=== PATIENT | male | born 1965 | race Caucasian/White ===

== ENCOUNTER 2021-09-25 16:00 | Outpatient (REF) | payer SELFPAY ==
[2021-09-25 16:02] LABS: ALT 39 U/L (16-63); AST 21 U/L (15-37); Albumin 4.1 g/dL (3.4-5.0); Alkaline Phosphatase 70 U/L (46-116); Anion Gap 11.9 mmol/L (3-11); BUN 17 mg/dL (7-18); Bilirubin, Total 0.3 mg/dL (0.2-1.0); CO2 27.1 mmol/L (21.0-32.0); CREATININE 1.1 mg/dL (0.70-1.30); Calcium 8.9 mg/dL (8.5-10.1); Calculated LDL 164 mg/dL (<100); Chloride 104 mmol/L (98-107); Cholesterol 266 mg/dL (<200); Glucose 105 mg/dL (74-106); HDL Cholesterol 46 mg/dL (40-60); Potassium 4.1 mmol/L (3.5-5.1); Sodium 143 mmol/L (136-145); Total Protein 6.8 g/dL (6.4-8.2); Triglyceride 283 mg/dL (<150); Vitamin B12 830 pg/mL (193-986)
[2021-09-25 16:07] LABS: Folate > 20.0 ng/mL (8.6-20.0)
[2021-09-27 09:01] LABS: HIV-1/2 Ag & Ab Screen Negative (Negative)
[2021-09-27 09:15] LABS: Hepatitis C Ab w Rflx HCV PCR Negative (Negative)
== END 2021-09-25 16:01 | disposition home or self-care (01) ==
LOC: NCHCN 16:00
PROVIDERS: PCP Nurse Practitioner Family; Visit Provider Nurse Practitioner Family
DX: F39 Unspecified mood [affective] disorder (principal); R45.4 Irritability and anger; F10.10 Alcohol abuse, uncomplicated; Z72.89 Other problems related to lifestyle; Z11.4 Encounter for screening for human immunodeficiency virus [HIV]; Z11.59 Encounter for screening for other viral diseases; Z13.220 Encounter for screening for lipoid disorders
CPT/HCPCS: 80053; 80061; 86803; 87389; 82607; 82746

== ENCOUNTER 2022-01-10 15:37 | Outpatient (REF) | payer SELFPAY ==
[2022-01-10 15:19] LABS: ALT 36 U/L (16-63); AST 27 U/L (15-37); Alkaline Phosphatase 65 U/L (46-116); Bilirubin, Direct 0.1 mg/dL (0.0-0.2)
== END 2022-01-10 15:38 | disposition home or self-care (01) ==
LOC: NCHCN 15:37
PROVIDERS: PCP Nurse Practitioner Family; Visit Provider Nurse Practitioner Family
DX: Z51.81 Encounter for therapeutic drug level monitoring (principal); Z79.899 Other long term (current) drug therapy
CPT/HCPCS: 82248; 84075; 84450; 84460

== ENCOUNTER 2022-04-10 18:15 | Outpatient (REF) | payer SELFPAY ==
[2022-04-11 19:26] LABS: PSA, Screening 0.5 ng/mL (<=3.5)
== END 2022-04-10 18:16 | disposition home or self-care (01) ==
LOC: NCHCN 18:15
PROVIDERS: PCP Nurse Practitioner Family; Visit Provider Nurse Practitioner Family
DX: Z12.5 Encounter for screening for malignant neoplasm of prostate (principal)
CPT/HCPCS: 84153

== ENCOUNTER 2022-06-25 16:58 | Outpatient (REF) | payer SELFPAY ==
--- NOTE | 2022-06-25 15:45 | SKI_PTH ---
PATIENT: Marko Ko LOC: [facility] U#:[id number] AGE/SX: 56/M ROOM: RE06/25/[address]: Dee Gilbert : 1965 BED: DIS: 06/25/2022 SPEC #: [id number] RECD: 06/26/22 11:27 STATUS: SAVI RECedric #: [id number] JANET: 06/25/22 15:[address]: Dee Gilbert DEPT: Surgical Specimen RECD BY: Thea Fatima Tissues: 1 - SKIN BIOPSY(SHAVE/PUNCH) Procedures: SKIN LEVEL 4 Comments: [id number]
== END 2022-06-25 16:59 | disposition home or self-care (01) ==
LOC: LBN 16:58
PROVIDERS: PCP Nurse Practitioner Family; Visit Provider Nurse Practitioner Family
DX: L82.1 Other seborrheic keratosis (principal)
CPT/HCPCS: 88305

== ENCOUNTER 2023-02-17 18:35 | Outpatient (REF) | payer BC, SELFPAY ==
[2023-02-17 21:19] LABS: ALT 31 U/L (16-63); AST 26 U/L (15-37); Albumin 3.9 g/dL (3.4-5.0); Alkaline Phosphatase 66 U/L (46-116); Bilirubin, Direct 0.1 mg/dL (0.0-0.2); Bilirubin, Total 0.3 mg/dL (0.2-1.0); Total Protein 6.9 g/dL (6.4-8.2)
== END 2023-02-17 18:36 | disposition home or self-care (01) ==
LOC: NCHCN 18:35
PROVIDERS: PCP Nurse Practitioner Family; Visit Provider Nurse Practitioner Family
DX: F10.10 Alcohol abuse, uncomplicated (principal)
CPT/HCPCS: 80076

== ENCOUNTER 2024-08-17 11:44 | Outpatient (REF) | payer SELFPAY ==
[2024-08-17 16:31] LABS: HCT 44.8 % (40.0-50.0); HGB 15.5 g/dL (13.5-17.5); MCH 30.9 pg (27.0-33.0); MCHC 34.6 % (32.0-36.0); MCV 89 fL (80-95); MPV 10.2 fL (8.0-11.0); Platelet Count 277 10^3/uL (130-400); RBC 5.02 10^6/uL (4.36-5.78); RDW 11.8 % (11.8-14.1); RDW-SD 38.1 fL; WBC 6.05 10^3/uL (4.4-10.8)
[2024-08-17 17:17] LABS: ALT 30 U/L (16-63); AST 27 U/L (15-37); Albumin 3.9 g/dL (3.4-5.0); Alkaline Phosphatase 70 U/L (46-116); Anion Gap 5.7 mmol/L (3-11); BUN 14 mg/dL (7-18); Bilirubin, Total 0.6 mg/dL (0.2-1.0); CO2 29.3 mmol/L (21.0-32.0); CREATININE 1.1 mg/dL (0.70-1.30); Calcium 8.9 mg/dL (8.5-10.1); Calculated LDL 138 mg/dL (<100); Chloride 106 mmol/L (98-107); Cholesterol 208 mg/dL (<200); Estimated GFR 77.33 (mL/min/1.73m2); Glucose 107 mg/dL (74-106); HDL Cholesterol 47 mg/dL (>or=40); Sodium 141 mmol/L (136-145); Total Protein 7.1 g/dL (6.4-8.2); Triglyceride 118 mg/dL (<150)
== END 2024-08-17 11:45 | disposition home or self-care (01) ==
LOC: NCHCN 11:44
PROVIDERS: PCP Nurse Practitioner Family; Visit Provider Nurse Practitioner Family
DX: F39 Unspecified mood [affective] disorder (principal)
CPT/HCPCS: 80053; 80061; 85027

== ENCOUNTER 2025-01-10 19:26 | Outpatient (REF) | payer OTHER, SELFPAY ==
[2025-01-10 22:00] LABS: Calculated LDL 102 mg/dL (<100); Cholesterol 207 mg/dL (<200); HDL Cholesterol 34 mg/dL (>or=40); Triglyceride 356 mg/dL (<150)
== END 2025-01-10 19:27 | disposition home or self-care (01) ==
LOC: NCHCN 19:26
PROVIDERS: PCP Nurse Practitioner Family; Visit Provider Nurse Practitioner Family
DX: E78.2 Mixed hyperlipidemia (principal)
CPT/HCPCS: 80061